=== PATIENT | male | born 1960 | race Caucasian/White ===

== ENCOUNTER 2018-06-12 09:24 | Emergency (ER) | payer SELFPAY ==
[2018-06-12 13:21] LABS: Basophils % (Auto) 0.4 % (0.0-1.8); Eosinophils # (Auto) 0.1 K/mm3 (0.0-0.4); Eosinophils % (Auto) 0.5 % (0.0-4.3); Hemoglobin 15.5 gm/dl (11.8-15.2); Lymphocytes # (Auto) 1.9 K/mm3 (1.2-5.4); Lymphocytes % (Auto) 16.9 % (13.4-35.0); Mean Corpuscular HGB Conc 33 % (32-34); Mean Corpuscular Hemoglobin 28 pg (28-32); Mean Corpuscular Volume 86 fl (84-94); Monocytes # (Auto) 0.7 K/mm3 (0.0-0.8); Monocytes % (Auto) 6.4 % (0.0-7.3); Platelet Count 252 K/mm3 (140-440); Red Blood Count 5.47 M/mm3 (3.65-5.03); Red Cell Distribution Width 14.4 % (13.2-15.2)
[2018-06-12 13:33] LABS: INR 0.95 (0.87-1.13)
[2018-06-12 13:37] LABS: Alanine Aminotransferase 13 units/L (7-56); Albumin 4.1 g/dL (3.9-5); BUN/Creatinine Ratio 45; Blood Urea Nitrogen 27 mg/dL (9-20); Hemolysis Index 39
--- NOTE | 2018-06-12 14:14 | Emergency Department Report ---
ED General Adult HPI - General Chief complaint: Headache Stated complaint: EYE PAIN/HEAD ACHE Time Seen by Provider: 06/12/18 12:36 Source: patient Mode of arrival: Ambulatory Limitations: No Limitations - History of Present Illness Initial comments: She presents to the emergency department with the complaint of left eye lid drooping. Patient states he notices about a week ago and went to the clinic in [facility] where he was seen by what he describes his eye doctor and told that he needed to see a neurologist. Patient does complain of a mild headache that is diffuse in nature and not the worse headache of his life. Patient denies upper extremity weakness or lower extremity weakness -: Sudden Location: eyes Radiation: non-radiation Severity scale (0 -10): 1 Consistency: constant Improves with: none Worsens with: none Associated Symptoms: denies other symptoms Treatments Prior to Arrival: none - Related Data Previous Rx's Medication Instructions Recorded Last Taken Type Aspirin [Aspirin BABY CHEW TAB] 81 mg PO QDAY #30 tab.chew 03/01/17 Unknown Rx AtorvaSTATin [Lipitor] 20 mg PO QDAY #30 tablet 03/01/17 Unknown Rx Metformin HCl [Glucophage] 1,000 mg PO BID #60 tablet 03/01/17 Unknown Rx Pantoprazole [Protonix] 40 mg PO QDAY #30 tablet 03/01/17 Unknown Rx amLODIPine [Norvasc] 10 mg PO DAILY #30 tablet 03/01/17 Unknown Rx glipiZIDE [Glucotrol] 10 mg PO BID #60 tablet 03/01/17 Unknown Rx oxyCODONE /ACETAMINOPHEN [Percocet 1 tab PO Q6HR PRN #10 tablet 03/01/17 Unknown Rx 5/325] Allergies Allergy/AdvReac Type Severity Reaction Status Date / Time No Known Allergies Allergy Unverified 02/28/17 18:24 ED Review of Systems ROS: Stated complaint: EYE PAIN/HEAD ACHE Other details as noted in HPI Comment: All other systems reviewed and negative Constitutional: denies: chills, fever Eyes: other. denies: eye pain, eye discharge, vision change ENT: denies: ear pain, throat pain Respiratory: denies: cough, shortness of breath, wheezing Cardiovascular: denies: chest pain, palpitations Endocrine: no symptoms reported Gastrointestinal: denies: abdominal pain, nausea, diarrhea Genitourinary: denies: urgency, dysuria Musculoskeletal: denies: back pain, joint swelling, arthralgia Skin: denies: rash, lesions Neurological: denies: headache, weakness, paresthesias Psychiatric: denies: anxiety, depression Hematological/Lymphatic: denies: easy bleeding, easy bruising ED Past Medical Hx - Past Medical History Previous Medical History?: Yes Hx Hypertension: Yes Hx Diabetes: Yes Additional medical history: High cholesterol - Surgical History Past Surgical History?: No - Social History Smoking Status: Never Smoker Substance Use Type: None - Medications Home Medications: Home Medications Medication Instructions Recorded Confirmed Last Taken Type Aspirin [Aspirin BABY CHEW TAB] 81 mg PO QDAY #30 tab.chew 03/01/17 Unknown Rx AtorvaSTATin [Lipitor] 20 mg PO QDAY #30 tablet 03/01/17 Unknown Rx Metformin HCl [Glucophage] 1,000 mg PO BID #60 tablet 03/01/17 Unknown Rx Pantoprazole [Protonix] 40 mg PO QDAY #30 tablet 03/01/17 Unknown Rx amLODIPine [Norvasc] 10 mg PO DAILY #30 tablet 03/01/17 Unknown Rx glipiZIDE [Glucotrol] 10 mg PO BID #60 tablet 03/01/17 Unknown Rx oxyCODONE /ACETAMINOPHEN [Percocet 1 tab PO Q6HR PRN #10 tablet 03/01/17 Unknown Rx 5/325] ED Physical Exam - General Limitations: No Limitations General appearance: alert, in no apparent distress - Head Head exam: Present: atraumatic, normocephalic - Eye Eye exam: Present: other (patient has left lid ptosis; medial rectal palsy; left pupil was not reactive to light) - ENT ENT exam: Present: mucous membranes moist - Neck Neck exam: Present: normal inspection - Respiratory Respiratory exam: Present: normal lung sounds bilaterally. Absent: respiratory distress, wheezes, rales - Cardiovascular Cardiovascular Exam: Present: regular rate, normal rhythm. Absent: systolic murmur, diastolic murmur, rubs, gallop - GI/Abdominal GI/Abdominal exam: Present: soft, normal bowel sounds - Rectal Rectal exam: Present: deferred - Extremities Exam Extremities exam: Present: normal inspection - Back Exam Back exam: Present: normal inspection - Neurological Exam Neurological exam: Present: alert, oriented X3, normal gait, reflexes normal, other (patient is cranial nerve III and cranial nerves VII deficit findings on exam). Absent: motor sensory deficit - Psychiatric Psychiatric exam: Present: normal affect, normal mood - Skin Skin exam: Present: warm, dry, intact, normal color. Absent: rash ED Course Vital Signs 06/12/18 10:06 Temperature 98.2 F Pulse Rate 87 Respiratory 18 Rate Blood Pressure 110/67 O2 Sat by Pulse 96 Oximetry ED Medical Decision Making - Lab Data Result diagrams: 06/12/18 13:11 06/12/18 13:11 - Medical Decision Making Patient seen by Dr. Cordero and after he evaluated the patient he felt that the patient could be discharged home with outpatient follow-up Patient was discharged by Dr. Cordero Critical care attestation.: If time is entered above; I have spent that time in minutes in the direct care of this critically ill patient, excluding procedure time. ED Disposition Clinical Impression: Cranial nerve III palsy Disposition: OP ADMIT IP TO THIS HOSP Is pt being admited?: Yes Does the pt Need Aspirin: No Condition: Stable Referrals: PRIMARY CARE, [Primary Care Provider] - 3-5 Days
--- NOTE | 2018-06-12 15:14 | Cat Scan Report ---
FINAL REPORT PROCEDURE: CT HEAD/BRAIN WO CON TECHNIQUE: Computerized tomography of the head was performed without contrast material. HISTORY: CN VII palsy COMPARISON: No prior studies are available for comparison. FINDINGS: Brain: Brain density appears normal. No evidence of intracranial hemorrhage. No parenchymal hemorrhage, mass lesions or mass effect are seen. No abnormal extraxial fluid collects or masses are seen. Brainstem appears normal. No masses are seen in the cerebellar pontine angles. Ventricles: Ventricles are normal size and are midline. Bone Windows: No evidence of skull fracture. Paranasal sinuses: There is minimal mucosal thickening in a few of the ethmoid air cells. Small calcified nodular density is seen medial aspect left frontal sinus measuring 3.6 millimeters suggesting a small osteoma. Mastoid air cells: Mastoid air cells and middle ear appear clear. No bony destructive changes are seen in the temporal bones. IMPRESSION: Negative unenhanced CT of the brain. Mild paranasal sinus disease as described. Small calcified nodular density medial aspect left frontal sinus suggesting a small osteoma.
--- NOTE | 2018-06-12 16:28 | Event Note ---
Date: 06/12/18 L Ptosis for 4 to 5 days No diplopia EOM's reasonable Pupils reactive Ptosis complete Has High Glucose levels A/P L Oculomotor N Partial Palsy Should recover spontaneously in 6 to 8 weeks Tight control of Diabetes F/u with PCP and Referral to Neurology
[2018-06-12 16:48] VITALS: BP 115/80
== END 2018-06-12 16:48 | disposition admitted as inpatient to this hospital (09) ==
LOC: ED 09:24
DX: H49.02 Third [oculomotor] nerve palsy, left eye (principal); I10 Essential (primary) hypertension; E11.9 Type 2 diabetes mellitus without complications; E78.00 Pure hypercholesterolemia, unspecified; Z79.82 Long term (current) use of aspirin; Z79.899 Other long term (current) drug therapy
CPT/HCPCS: 36415; 70450; 80053; 85025; 85610; 85730

== ENCOUNTER 2020-01-31 12:12 | Emergency (ER) | payer OTHER, SELFPAY ==
--- NOTE | 2020-01-31 12:29 | Event Note ---
ED Screening Note ED Screening Note: Sent from PCP Dr. Medel's office for lower abdominal pain nausea dehydration hx of DM CAD This initial assessment/diagnostic orders/clinical plan/treatment(s) is/are subject to change based on patients health status, clinical progression and re- assessment by fellow clinical providers in the ED. Further treatment and workup at subsequent clinical providers discretion. Patient/guardian urged not to elope from the ED as their condition may be serious if not clinically assessed and managed. Initial orders include: labs
[2020-01-31 13:52] LABS: Hematocrit 43.7 % (35.5-45.6); Hemoglobin 14.3 gm/dl (11.8-15.2); Mean Corpuscular HGB Conc 33 % (32-34); Mean Corpuscular Volume 84 fl (84-94); Platelet Count 320 K/mm3 (140-440); Red Blood Count 5.19 M/mm3 (3.65-5.03); Red Cell Distribution Width 14.3 % (13.2-15.2)
[2020-01-31 13:58] LABS: Bacteria,Urine 1+ /HPF (Negative); Bilirubin,Urine NEG (Negative); Blood,Urine SM (Negative); Color,Urine Yellow (Yellow); Mucus,Urine FEW /HPF; Urobilinogen,Urine < 2.0 mg/dL (<2.0)
[2020-01-31] MEDS ORDERED: ONDANSETRON 4 MG/2 ML INJ IV ONE (14:06)
[2020-01-31] MEDS ORDERED: SODIUM CHLORIDE 0.9% 1000 ML 1,000 ML IV ONE ×2 (14:06→14:29)
[2020-01-31 14:18] LABS: Alanine Aminotransferase 14 units/L (7-56); Albumin 4.7 g/dL (3.9-5); BUN/Creatinine Ratio 35; Blood Urea Nitrogen 21 mg/dL (9-20); Calcium 10.1 mg/dL (8.4-10.2); Hemolysis Index 18
[2020-01-31 14:27] LABS: Bilirubin,Direct < 0.2 mg/dL (0-0.2)
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
[2020-01-31 15:07] LABS: Basophils % (Manual) 0 % (0.0-1.8); Eosinophils % (Manual) 0 % (0.0-4.3); Total Cells Counted 100
[2020-01-31 15:08] LABS: Platelet Estimate Consistent w Auto; RBC Morphology Normal
[2020-01-31] MEDS ORDERED: ACETAMINOPHEN 325 MG TAB PO ONE (18:11)
[2020-01-31] MEDS ORDERED: ACETAMINOPHEN 325 MG TAB ONE (18:13)
[2020-01-31] MEDS ORDERED: levoFLOXacin 500 MG TAB PO ONE (20:13)
[2020-01-31] MEDS ORDERED: INSULIN REGULAR, HUMAN 100 UNITS/1 ML IV ONE (20:13)
[2020-01-31 20:30] VITALS: BP 125/64
[2020-01-31] MEDS ORDERED: ONDANSETRON 4 MG/2 ML INJ ONE (20:58)
--- NOTE | 2020-01-31 21:17 | Cat Scan Report ---
CT abdomen pelvis w con INDICATION / CLINICAL INFORMATION: MAIN: Abdominal pain 100cc of omnipaque 300 bolus . TECHNIQUE: All CT scans at this location are performed using CT dose reduction for ALARA by means of automated e xposure control. COMPARISON: None available. FINDINGS: Limited lower thoracic images are negative. ABDOMEN: The gallbladder, liver, spleen, pancreas, kidneys and left adrenal gland are normal. A 2.5 cm right adrenal mass is identified with slightly heterogeneous enhancement and mean postcontra st attenuation value of 79 Hounsfield units. Mild atherosclerotic changes are noted in the aortoiliac vessels. No retroperitoneal adenopathy. No small bowel dilatation. Pelvis: There is irregularly enhancing bladder wall lesion involving the right anterolateral wall. No enlarged pelvic lymph nodes. The appendix is normal. Mild sigmoid diverticulosis. Skeletal structures are not remarkable. IMPRESSION: 1. 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 2. 2.5 cm right adrenal mass, likely adenoma but noncontrast and contrast adrenal protocol imaging re commended. 3. Sigmoid diverticulosis. Signer Name: Abe Pearson MD Signed: 01/31/2020 9:13 PM Workstation Name: [id number]
== END 2020-01-31 22:27 | disposition home or self-care (01) ==
LOC: ED 12:12
DX: E86.0 Dehydration (principal); N32.9 Bladder disorder, unspecified; N30.90 Cystitis, unspecified without hematuria; E11.65 Type 2 diabetes mellitus with hyperglycemia; I10 Essential (primary) hypertension; Z79.82 Long term (current) use of aspirin; Z79.899 Other long term (current) drug therapy
CPT/HCPCS: 36415; 74177; 80048; 80076; 81001; 82805; 82962; 83690; 85007; 85025; 87086; 96361; 96374; 96375; 99284; J2405; J7030; Q9967; J1815

== ENCOUNTER 2020-02-28 14:08 | Emergency (ER) | payer OTHER ==
[2020-02-28 15:49] LABS: Bacteria,Urine 2+ /HPF (Negative); Bilirubin,Urine NEG (Negative); Blood,Urine LG (Negative); Color,Urine Yellow (Yellow); Mucus,Urine 3+ /HPF; Sperm,Urine 1+ /HPF (NP)
[2020-02-28 16:02] LABS: RBC,Urine > 182.0 /HPF (0.0-6.0); WBC,Urine > 182.0 /HPF (0.0-6.0)
[2020-02-28] MEDS ORDERED: SODIUM CHLORIDE 0.9% 1000 ML 1,000 ML IV ONE (16:24)
[2020-02-28] MEDS ORDERED: METOCLOPRAMIDE 10 MG/2 ML INJ IV ONE (16:24)
--- NOTE | 2020-02-28 16:25 | Emergency Department Report ---
ED General Adult HPI - General Chief complaint: Nausea/Vomiting/Diarrhea Stated complaint: V/N X1WEEK Time Seen by Provider: 02/28/20 16:10 Source: patient, RN notes reviewed, old records reviewed Mode of arrival: Ambulatory Limitations: No Limitations - History of Present Illness Initial comments: The patient is a 59-year-old gentleman. His urologist is Dr. Kent. He has a history of diabetes, high cholesterol, possible heart disease. In 2017, he had a hemoglobin A1c of 11. He is reportedly on metronidazole, as needed Zofran for uncertain reasons, he also has a history of a bladder lesion, which is currently being worked up by the outpatient urologist. History is obtained from the patient, and from his daughter Ms. Avani Anaya; [phone] The patient had a CT scan of the abdomen pelvis performed at this hospital January 31, 2020, last month, which showed an irregularly enhancing bladder wall lesion, normal appendix, sigmoid diverticulosis, and other incidental nonemergent findings. The patient has been having intermittent nausea and vomiting. He has no physical pain at this time. The patient denies headache, neck pain, chest p ain, shortness of breath, cough, fever, testicular pain, and he also denies irritative and obstructive urinary symptoms. He had a urinalysis sent at this hospital last month, with a negative culture. In the emergency room, the patient symptoms were improved with Reglan, and with IV fluids. In the 4 hours that the patient has been here, he has not vomited once. As per collateral information from his daughter, the patient's diet is not ideal for diabetic, he does eat a fair amount of sweets, and carbohydrates -: Gradual, week(s) Quality: other Consistency: other Improves with: other Worsens with: other Associated Symptoms: other Treatments Prior to Arrival: other - Related Data Home Medications Medication Instructions Recorded Confirmed Last Taken Metoprolol 25 mg DAILY 02/28/20 02/28/20 1 Day Ago ~02/27/20 25 NovoLIN N 20 units SQ DAILY 02/28/20 02/28/20 02/27/20 08:00 20 Previous Rx's Medication Instructions Recorded Last Taken Type Metoclopramide [Reglan] 10 mg PO QID PRN #30 tablet 02/28/20 Unknown Rx Allergies Allergy/AdvReac Type Severity Reaction Status Date / Time No Known Allergies Allergy Unverified 02/28/17 18:24 ED Review of Systems ROS: Stated complaint: V/N X1WEEK Other details as noted in HPI Constitutional: denies: fever Eyes: denies: eye discharge ENT: denies: congestion Respiratory: denies: wheezing Cardiovascular: denies: syncope Gastrointestinal: nausea, vomiting. denies: abdominal pain, constipation, hematemesis, melena, hematochezia Genitourinary: denies: testicular pain Musculoskeletal: as per HPI Skin: as per HPI Neurological: as per HPI Psychiatric: as per HPI Hematological/Lymphatic: as per HPI ED Past Medical Hx - Past Medical History Previous Medical History?: Yes Hx Hypertension: Yes Hx Diabetes: Yes Additional medical history: High cholesterol - Surgical History Past Surgical History?: Yes Additional Surgical History: bladder - Social History Smoking Status: Never Smoker Substance Use Type: None - Medications Home Medications: Home Medications Medication Instructions Recorded Confirmed Last Taken Type Metoclopramide [Reglan] 10 mg PO QID PRN #30 tablet 02/28/20 Unknown Rx Metoprolol 25 mg DAILY 02/28/20 02/28/20 1 Day Ago History ~02/27/20 25 NovoLIN N 20 units SQ DAILY 02/28/20 02/28/20 02/27/20 08:00 History 20 ED Physical Exam - General Limitations: No Limitations General appearance: alert, in no apparent distress - Head Head exam: Present: atraumatic, normocephalic - Eye Eye exam: Present: normal appearance, EOMI. Absent: nystagmus - ENT ENT exam: Present: normal exam, normal orophraynx, mucous membranes moist, norm al external ear exam - Neck Neck exam: Present: normal inspection, full ROM. Absent: tenderness, meningismus - Respiratory Respiratory exam: Present: normal lung sounds bilaterally. Absent: respiratory distress - Cardiovascular Cardiovascular Exam: Present: regular rate, normal rhythm, normal heart sounds. Absent: bradycardia, tachycardia, irregular rhythm, systolic murmur, diastolic murmur, rubs, gallop - GI/Abdominal GI/Abdominal exam: Present: soft, normal bowel sounds. Absent: distended, tenderness, guarding, rebound, rigid, pulsatile mass - Rectal Rectal exam: Present: deferred - Extremities Exam Extremities exam: Present: normal inspection, full ROM, other (2+ pulses noted in the bilateral upper and lower extremities. There is no palpable cord. negative Homans sign. Muscular compartments are soft. The pelvis is stable.). Absent: pedal edema, calf tenderness - Back Exam Back exam: Present: normal inspection, full ROM. Absent: tenderness, CVA tenderness (R), CVA tenderness (L), paraspinal tenderness, vertebral tenderness - Neurological Exam Neurological exam: Present: alert, normal gait, other (No facial droop. Tongue midline. Extraocular movements intact bilaterally. Facial sensation intact to light touch in V1, V2, V3 distribution bilaterally. 5 and a 5 strength in 4 extremities. Sensation intact to light touch in 4 extremities.). Absent: motor sensory deficit - Psychiatric Psychiatric exam: Present: anxious - Skin Skin exam: Present: warm, dry, intact, normal color. Absent: rash ED Course Vital Signs 02/28/20 02/28/20 02/28/20 14:10 14:11 14:18 Temperature 98.2 F Pulse Rate 96 H 97 H Respiratory 18 Rate Blood Pressure 102/59 Blood Pressure [Left] O2 Sat by Pulse 97 97 Oximetry 02/28/20 02/28/20 02/28/20 15:47 16:00 16:30 Temperature 98.2 F Pulse Rate 88 88 Respiratory 19 16 Rate Blood Pressure 144/79 135/75 Blood Pressure 128/74 [Left] O2 Sat by Pulse 96 96 Oximetry 02/28/20 02/28/20 17:00 17:25 Temperature Pulse Rate Respiratory 17 16 Rate Blood Pressure 128/75 Blood Pressure [Left] O2 Sat by Pulse 97 Oximetry ED Medical Decision Making - Lab Data Result diagrams: 02/28/20 16:28 02/28/20 16:28 Vital Signs 02/28/20 02/28/20 02/28/20 14:10 14:11 14:18 Temperature 98.2 F Pulse Rate 96 H 97 H Respiratory 18 Rate Blood Pressure 102/59 Blood Pressure [Left] O2 Sat by Pulse 97 97 Oximetry 02/28/20 02/28/20 02/28/20 15:47 16:00 16:30 Temperature 98.2 F Pulse Rate 88 88 Respiratory 19 16 Rate Blood Pressure 144/79 135/75 Blood Pressure 128/74 [Left] O2 Sat by Pulse 96 96 Oximetry 02/28/20 02/28/20 17:00 17:25 Temperature Pulse Rate Respiratory 17 16 Rate Blood Pressure 128/75 Blood Pressure [Left] O2 Sat by Pulse 97 Oximetry Lab Results 02/28/20 02/28/20 02/28/20 Range/Units 14:30 16:28 16:28 WBC 10.8 (4.5-11.0) K/mm3 RBC 4.97 (3.65-5.03) M/mm3 Hgb 13.9 (11.8-15.2) gm/dl Hct 42.1 (35.5-45.6) % MCV 85 (84-94) fl MCH 28 (28-32) pg MCHC 33 (32-34) % RDW 14.6 (13.2-15.2) % Plt Count 318 (140-440) K/mm3 PT 14.6 (12.2-14.9) Sec. INR 1.12 (0.87-1.13) APTT 30.3 (24.2-36.6) Sec. Sodium (137-145) mmol/L Potassium (3.6-5.0) mmol/L Chloride (98-107) mmol/L Carbon Dioxide (22-30) mmol/L Anion Gap mmol/L BUN (9-20) mg/dL Creatinine (0.8-1.5) mg/dL Estimated GFR ml/min BUN/Creatinine Ratio % Glucose (75-100) mg/dL POC Glucose 176 H (70-105) Calcium (8.4-10.2) mg/dL Magnesium (1.7-2.3) mg/dL Total Bilirubin (0.1-1.2) mg/dL AST (5-40) units/L ALT (7-56) units/L Alkaline Phosphatase (35-129) units/L Total Creatine Kinase (55-170) units/L Total Protein (6.3-8.2) g/dL Albumin (3.9-5) g/dL Albumin/Globulin Ratio % Urine Color (Yellow) Urine Turbidity (Clear) Urine pH (5.0-7.0) Ur Specific [place] (1.003-1.030) Urine Protein (Negative) mg/dL Urine Glucose (UA) (Negative) mg/dL Urine Ketones (Negative) mg/dL Urine Blood (Negative) Urine Nitrite (Negative) Urine Bilirubin (Negative) Urine Urobilinogen (<2.0) mg/dL Ur Leukocyte Esterase (Negative) Urine WBC (Auto) (0.0-6.0) /HPF Urine RBC (Auto) (0.0-6.0) /HPF U Epithel Cells (Auto) (0-13.0) /HPF Urine Bacteria (Auto) (Negative) /HPF Urine WBC Clumps /HPF Urine Mucus /HPF Urine Yeast (Budding) /HPF Urine Sperm (MARINE ENGINEER) /HPF 02/28/20 02/28/20 Range/Units 16:28 Unknown WBC (4.5-11.0) K/mm3 RBC (3.65-5.03) M/mm3 Hgb (11.8-15.2) gm/dl Hct (35.5-45.6) % MCV (84-94) fl MCH (28-32) pg MCHC (32-34) % RDW (13.2-15.2) % Plt Count (140-440) K/mm3 PT (12.2-14.9) Sec. INR (0.87-1.13) APTT (24.2-36.6) Sec. Sodium 136 L (137-145) mmol/L Potassium 4.2 (3.6-5.0) mmol/L Chloride 99.6 (98-107) mmol/L Carbon Dioxide 25 (22-30) mmol/L Anion Gap 16 mmol/L BUN 14 (9-20) mg/dL Creatinine 0.7 L (0.8-1.5) mg/dL Estimated GFR > 60 ml/min BUN/Creatinine Ratio 20 % Glucose 139 H (75-100) mg/dL POC Glucose (70-105) Calcium 9.9 (8.4-10.2) mg/dL Magnesium 2.30 (1.7-2.3) mg/dL Total Bilirubin 1.10 (0.1-1.2) mg/dL AST 14 (5-40) units/L ALT 9 (7-56) units/L Alkaline Phosphatase 99 (35-129) units/L Total Creatine Kinase 25 L (55-170) units/L Total Protein 7.4 (6.3-8.2) g/dL Albumin 4.0 (3.9-5) g/dL Albumin/Globulin Ratio 1.2 % Urine Color Yellow (Yellow) Urine Turbidity Turbid (Clear) Urine pH 5.0 (5.0-7.0) Ur Specific [place] 1.024 (1.003-1.030) Urine Protein 100 mg/dl (Negative) mg/dL Urine Glucose (UA) 50 (Negative) mg/dL Urine Ketones 20 (Negative) mg/dL Urine Blood Lg (Negative) Urine Nitrite Neg (Negative) Urine Bilirubin Neg (Negative) Urine Urobilinogen 2.0 (<2.0) mg/dL Ur Leukocyte Esterase Mod (Negative) Urine WBC (Auto) > 182.0 H (0.0-6.0) /HPF Urine RBC (Auto) > 182.0 (0.0-6.0) /HPF U Epithel Cells (Auto) 2.0 (0-13.0) /HPF Urine Bacteria (Auto) 2+ (Negative) /HPF Urine WBC Clumps 3+ /HPF Urine Mucus 3+ /HPF Urine Yeast (Budding) 3+ /HPF Urine Sperm 1+ (MARINE ENGINEER) /HPF - EKG Data -: EKG Interpreted by [facility] EKG shows normal: sinus rhythm Rate: normal - EKG Data 02/28/20 18:49 Sinus rhythm, 90 bpm, left axis deviation, left anterior fascicular block, QTC within normal limits, left ventricular hypertrophy, not a STEMI, the EKG is unchanged from prior EKG from March 01, 2017. This EKG is not a STEMI - Radiology Data Radiology results: pending, report reviewed, image reviewed CT scan from last month is reviewed and appreciated - Medical Decision Making Differential diagnosis, including but not limited to: Gastroparesis, medication side effect, Assessment and plan: 59-year-old gentleman, with a history of diabetes, hemoglobin A1c in 2017 was 11, with resolved nausea and vomiting, who is afebrile with reassuring vital signs with a benign physical examination. Suspect gastroparesis and side effect of metronidazole. Screening laboratory studies unremarkable. EKG unchanged from prior. Urinalysis reviewed and appreciated, this is most likely secondary to his bladder lesion, for which she is following up with outpatient urology. I had extensive discussion with the patient and his daughter. Discussed the need for diet and lifestyle modification to improved hyperglycemia, hemoglobin A1c, and presumed diabetic gastroparesis. Extensively discussed this with jonathan hinds. She verbalized understanding, and indicated she would also communicate this to her father. Also discussed the need to follow-up with outpatient urology to exclude cancer, tumor, malignancy in the bladder, daughter has verbalized understanding, and further endorses that she will communicate this to the patient himself, and I will also communicate this to the patient. Patient observed in this department for over 4 hours without clinical decompensation or active vomiting. He denied fever, cough, and exposure to coronavirus. This patient is suitable for trial of outpatient management with the aforementioned interventions and recommendations. Critical care attestation.: If time is entered above; I have spent that time in minutes in the direct care of this critically ill patient, excluding procedure time. ED Disposition Clinical Impression: History of nausea and vomiting Disposition: DC-01 TO HOME OR SELFCARE Is pt being admited?: No Does the pt Need Aspirin: No Condition: Stable Additional Instructions: Continue outpatient medications, and do not consume alcohol. Patient's symptoms likely coming from high blood sugar, diabetes, and possible gastroparesis, which typically comes from high blood sugar levels affecting the nerves that supply the intestines. Treatment for this involves avoidance of simple carbohydrates, and sugar. The patient should drink plenty of water, avoid soda, tea, and sugary drinks. The patient should avoid simple carbohydrates, and should consume plenty of fiber, lean protein, and green vegetables. The patient may reference the [employer] website for help and assistance with dietary recommendations. Diabetic gastroparesis typically takes weeks and months to improve. It does not typically improve overnight or rapidly. The prescribed Reglan medication may assist with symptoms of nausea and vomiting. Avoid consumption of heavy and/or spicy foods, and patient may eat bland foods to start. The patient should follow-up with his outpatient primary care doctor within the next 14 days. The patient should also follow-up with his outpatient urologist, Dr. Owens, to make certain that lesion in the bladder is not a tumor, cancer, or malignancy. Return to the emergency room right away with new, worsened or different symptoms, or symptoms not present on the initial emergency room evaluation. Referrals: JEANNETTE HATFIELD MD [Staff Physician] - as needed [facility] [Provider Group] - as needed
[2020-02-28 17:05] LABS: Hematocrit 42.1 % (35.5-45.6); Hemoglobin 13.9 gm/dl (11.8-15.2); Mean Corpuscular HGB Conc 33 % (32-34); Mean Corpuscular Volume 85 fl (84-94); Platelet Count 318 K/mm3 (140-440); Red Blood Count 4.97 M/mm3 (3.65-5.03); Red Cell Distribution Width 14.6 % (13.2-15.2)
[2020-02-28 17:16] LABS: INR 1.12 (0.87-1.13)
[2020-02-28 17:17] LABS: Partial Thromboplastin Time 30.3 Sec. (24.2-36.6)
[2020-02-28 17:19] LABS: Alanine Aminotransferase 9 units/L (7-56); BUN/Creatinine Ratio 20; Blood Urea Nitrogen 14 mg/dL (9-20); Calcium 9.9 mg/dL (8.4-10.2); Hemolysis Index 12
[2020-02-28 19:19] VITALS: BP 114/68
== END 2020-02-28 19:16 | disposition home or self-care (01) ==
LOC: ED 14:08
DX: R11.2 Nausea with vomiting, unspecified (principal); E11.9 Type 2 diabetes mellitus without complications; E78.00 Pure hypercholesterolemia, unspecified; I10 Essential (primary) hypertension; Z98.890 Other specified postprocedural states; Z79.899 Other long term (current) drug therapy
CPT/HCPCS: 36415; 80053; 81001; 82550; 82962; 83735; 85027; 85610; 85730; 87086; 96361; 96374; 99284; J2765; J7030; 93005